=== PATIENT | male | born 1950 | race Caucasian/White ===

== ENCOUNTER 2017-09-27 05:47 | Inpatient (IN) | payer MEDICARE, OTHER ==
[2017-09-27] MEDS: HYDROmorphONE 1 MG/5 ML IV SYRINGE IV (06:42)
[2017-09-27] MEDS: ONDANSETRON 4 MG INJ IV ×4 (06:42→16:40)
[2017-09-27] MEDS: LACTATED RINGER'S 1,000 ML IV (06:42)
[2017-09-27] MEDS ORDERED: SUCCINYLCHOLINE CHLORIDE 100 MG/5 ML SYG IV (07:00)
[2017-09-27 07:14] LABS: ADD MAN DIFF? NO
[2017-09-27 07:24] LABS: WHITE BLOOD COUNT 18.1 10^3/ul (4.8-10.8)
[2017-09-27 07:24] LABS: BASOPHILS % 0.2 % (0.0-2.0); EOSINOPHILS # 0.1 10^3/ul (0.0-0.5); EOSINOPHILS % 0.6 % (0.0-7.0); HEMATOCRIT 54.2 % (42.0-52.0); HEMOGLOBIN 17.7 g/dl (14.0-18.0); LYMPHOCYTES # 1.6 10^3/ul (0.8-2.9); MEAN CORPUSCULAR HEMOGLOBIN 28.1 pg (29.0-33.0); MEAN CORPUSCULAR HGB CONC 32.7 g/dl (32.0-37.0); MEAN CORPUSCULAR VOLUME 85.9 fl (82.0-101.0); MEAN PLATELET VOLUME 11.1 fl (7.4-10.4); MONOCYTES % 5.5 % (0.0-11.0); NEUTROPHIL # 15.2 10^3/ul (1.6-7.5); NEUTROPHILS % 83.8 % (39.0-77.0); PLATELET COUNT 178 10^3/UL (140-415); RED BLOOD COUNT 6.31 10^6/ul (4.70-6.10); RED CELL DISTRIBUTION WIDTH 16.4 % (11.5-14.5)
[2017-09-27 07:39] LABS: ALANINE AMINOTRANSFERASE 28 IU/L (13-69); ALBUMIN 4.7 g/dl (3.3-4.9); ALBUMIN/GLOBULIN RATIO 1.42; ALKALINE PHOSPHATASE 186 IU/L (42-121); ANION GAP 21 (8-16); ASPARTATE AMINO TRANSFERASE 33 IU/L (15-46); BILIRUBIN,INDIRECT 0.7 mg/dl (0-1.1); BILIRUBIN,TOTAL 0.7 mg/dl (0.2-1.3); BLOOD UREA NITROGEN 18 mg/dl (7-20); CALCIUM 9.6 mg/dl (8.4-10.2); CARBON DIOXIDE 30 mmol/L (21-31); CHLORIDE 100 mmol/L (97-110); CREATININE 0.77 mg/dl (0.61-1.24); GLUCOSE 204 mg/dl (70-220); LIPASE 83 U/L (23-300); POTASSIUM 3.1 mmol/L (3.5-5.1); SODIUM 148 mmol/L (135-144)
[2017-09-27 07:52] LABS: ADD UMIC YES; UR ASCORBIC ACID 40 mg/dL (NEGATIVE); UR BILIRUBIN (Dip) NEGATIVE (NEGATIVE); UR BLOOD (Dip) NEGATIVE (NEGATIVE); UR CLARITY CLEAR (CLEAR); UR COLOR YELLOW (YELLOW); UR GLUCOSE (Dip) 3+ mg/dL (NEGATIVE); UR KETONES (Dip) 1+ mg/dL (NEGATIVE); UR LEUKOCYTE ESTERASE (Dip) NEGATIVE Leu/ul (NEGATIVE); UR NITRITE (Dip) NEGATIVE (NEGATIVE); UR RBC 2 /HPF (0-5); UR SPECIFIC GRAVITY (Dip) 1.007 (1.003-1.030); UR TOTAL PROTEIN (Dip) 2+ mg/dl (NEGATIVE); UR UROBILINOGEN (Dip) NEGATIVE (NEGATIVE); UR WBC 1 /HPF (0-5)
[2017-09-27] MEDS: KETOROLAC 15 MG INJ IV (07:56)
[2017-09-27] MEDS: morphine 4 MG/ML VIAL IV (08:35)
[2017-09-27] MEDS: POTASSIUM CHLORIDE (SR) 20 MEQ TAB PO (08:36)
[2017-09-27] MEDS: HYDROmorphONE 0.5 MG/0.5 ML SYG IV ×3 (09:09→17:30)
[2017-09-27] MEDS ORDERED: ACETAMINOPHEN 650 MG SUPP PR (09:30)
[2017-09-27] MEDS ORDERED: hydrALAzine 20 MG INJ IV ×2 (09:30→16:00)
[2017-09-27] MEDS ORDERED: NACL 0.9% 3 ML SYG IV (09:30)
[2017-09-27] MEDS: SOD CHLORIDE 0.9% 1,000 ML IV ×2 (09:42→17:14)
[2017-09-27 10:07] LABS: INR 1.37; PARTIAL THROMBOPLASTIN TIME 34.6 Sec (25.0-35.0); PROTIME 17.1 Sec (11.9-14.9); PT RATIO 1.3
[2017-09-27 10:29] LABS: CHOLESTEROL 123 mg/dl (100-200)
[2017-09-27 10:29] LABS: CHOL/HDL RATIO 2.2 RATIO; HDL CHOLESTEROL 54 mg/dl (30-78); LDL CHOLESTEROL,CALCULATED 53 mg/dl; TRIGLYCERIDES 79 mg/dl (0-149)
[2017-09-27 10:32] LABS: HEMOGLOBIN A1C 5.5 % (0-5.9)
[2017-09-27 11:29] LABS: LACTIC ACID 1.3 mmol/L (0.5-2.0)
[2017-09-27 12:53] LABS: FREE T4 (FREE THYROXINE) 2.13 ng/dl (0.78-2.44)
[2017-09-27] MEDS: GABAPENTIN 300 MG CAP PO ×2 (13:28→21:00)
[2017-09-27] MEDS: PIPER-TAZO 3.375 GM IV (PMX) 100 ML IVPB ×2 (13:28→23:26)
[2017-09-27] MEDS ORDERED: LIDOCAINE 2% (SDV) 5 ML INJ (13:52)
[2017-09-27] MEDS ORDERED: GLYCOPYRROLATE 0.4 MG INJ (13:52)
[2017-09-27] MEDS ORDERED: FENTAnyl 50 MCG/ML VIAL (13:52)
[2017-09-27] MEDS ORDERED: NEOSTIGMINE 3 MG/3 ML SYRINGE (13:52)
[2017-09-27] MEDS ORDERED: PROPOFOL 20 ML (13:52)
[2017-09-27] MEDS ORDERED: MIDAZOLAM 1 MG/ML 2 ML INJ (13:52)
[2017-09-27] MEDS ORDERED: ROCURONIUM 50 MG INJ (13:52)
[2017-09-27] MEDS ORDERED: BUPIVACAINE 0.25% (MPF) 30 ML INJ (13:52)
[2017-09-27] MEDS ORDERED: DEXAMETHASONE 4 MG/ML 1 ML INJ (13:53)
[2017-09-27] MEDS ORDERED: ONDANSETRON 4 MG INJ (13:54)
[2017-09-27] MEDS: POLYMYXIN/BACITRACIN 1L IRRIG IRR (14:43)
[2017-09-27] MEDS ORDERED: hydrALAzine 20 MG INJ (14:45)
[2017-09-27] MEDS ORDERED: SUGAMMADEX SODIUM 200 MG/2 ML VIAL IV (15:20)
[2017-09-27] MEDS ORDERED: OXYCODONE/ACETAMINOPHEN (5/325) TAB PO ×4 (15:30→16:00)
[2017-09-27] MEDS ORDERED: morphine 2 MG INJ IV (15:30)
[2017-09-27] MEDS ORDERED: HYDROmorphONE (0.2 MG/ML) 10ML SYG IV (16:00)
[2017-09-27] MEDS ORDERED: EPHEDrine SULFATE 50 MG/5 ML SYG IV (16:00)
[2017-09-27] MEDS ORDERED: DIPHENHYDRAMINE 50 MG INJ IV (16:00)
[2017-09-27] MEDS ORDERED: morphine (1 MG/ML) 10ML SYRINGE IV ×2 (16:00)
[2017-09-27] MEDS ORDERED: LABETALOL HCL 20MG INJ IV (16:00)
[2017-09-27] MEDS ORDERED: MIDAZOLAM 1 MG/ML 2 ML INJ IV (16:00)
[2017-09-27] MEDS ORDERED: MEPERIDINE 25 MG INJ IV (16:00)
[2017-09-27] MEDS ORDERED: ATROPINE 1 MG/10 ML SYRINGE IV (16:00)
[2017-09-27] MEDS: FENTAnyl 50 MCG/ML VIAL IV ×3 (16:10→16:25)
[2017-09-27] MEDS: HYDROmorphONE (0.2 MG/ML) 10ML SYG IV ×3 (16:11→16:25)
[2017-09-27] MEDS: morphine (1 MG/ML) 10ML SYRINGE IV (16:28)
[2017-09-27 19:00] LABS: HEMATOCRIT 56.5 % (42.0-52.0); HEMOGLOBIN 18.4 g/dl (14.0-18.0)
[2017-09-27] MEDS: ATORVASTATIN 20 MG TAB PO (21:00)
[2017-09-27 21:15] LABS: HEMATOCRIT 57.3 % (42.0-52.0); HEMOGLOBIN 18.6 g/dl (14.0-18.0)
[2017-09-28] MEDS: HYDROmorphONE 0.5 MG/0.5 ML SYG IV ×4 (01:13→20:02)
[2017-09-28] MEDS: ONDANSETRON 4 MG INJ IV ×3 (01:14→15:03)
[2017-09-28] MEDS: PIPER-TAZO 3.375 GM IV (PMX) 100 ML IVPB ×3 (05:49→21:35)
[2017-09-28] MEDS: SOD CHLORIDE 0.9% 1,000 ML IV ×6 (05:49→23:35)
[2017-09-28 06:01] LABS: WHITE BLOOD COUNT 32.1 10^3/ul (4.8-10.8)
[2017-09-28 06:01] LABS: ABNORMAL IP MESSAGE 1; HEMATOCRIT 53.9 % (42.0-52.0); HEMOGLOBIN 17.5 g/dl (14.0-18.0); MEAN CORPUSCULAR HEMOGLOBIN 28.4 pg (29.0-33.0); MEAN CORPUSCULAR HGB CONC 32.5 g/dl (32.0-37.0); MEAN CORPUSCULAR VOLUME 87.5 fl (82.0-101.0); MEAN PLATELET VOLUME 11.4 fl (7.4-10.4); PLATELET COUNT 244 10^3/UL (140-415); POSITIVE DIFF @See below; RED BLOOD COUNT 6.16 10^6/ul (4.70-6.10); RED CELL DISTRIBUTION WIDTH 16.9 % (11.5-14.5)
[2017-09-28 06:08] LABS: ADD MAN DIFF? YES
[2017-09-28 06:32] LABS: PHOSPHORUS 6.2 mg/dl (2.5-4.9)
[2017-09-28 06:32] LABS: MAGNESIUM 1.8 mg/dl (1.7-2.5)
[2017-09-28 06:41] LABS: LACTIC ACID 6.4 mmol/L (0.5-2.0)
[2017-09-28 06:54] LABS: ALANINE AMINOTRANSFERASE 23 IU/L (13-69); ALBUMIN 3.3 g/dl (3.3-4.9); ALBUMIN/GLOBULIN RATIO 1.32; ALKALINE PHOSPHATASE 107 IU/L (42-121); ANION GAP 22 (8-16); ASPARTATE AMINO TRANSFERASE 54 IU/L (15-46); BILIRUBIN,INDIRECT 1.1 mg/dl (0-1.1); BILIRUBIN,TOTAL 1.1 mg/dl (0.2-1.3); BLOOD UREA NITROGEN 29 mg/dl (7-20); CARBON DIOXIDE 24 mmol/L (21-31); CHLORIDE 105 mmol/L (97-110); CREATININE 1.34 mg/dl (0.61-1.24); GLUCOSE 186 mg/dl (70-220); POTASSIUM 4.7 mmol/L (3.5-5.1); SODIUM 146 mmol/L (135-144); TOTAL PROTEIN 5.8 g/dl (6.1-8.1)
[2017-09-28 07:12] LABS: ANISOCYTOSIS 1+ (0-0); BAND NEUTROPHILS #M 9.3 10^3/ul (0.0-0.6); BAND NEUTROPHILS % (M) 29 % (0-4); BURR CELLS 3+ (0-0); GIANT THROMBO% (M) 1 % (0-0); LYMPHOCYTES #M 1.2 10^3/ul (0.8-2.9); LYMPHOCYTES % (M) 4 % (15-51); METAMYELOCYTES #M 0.6 10^3/ul (0.0-0.0); METAMYELOCYTES %M 2 % (0-0); MICROCYTOSIS 1+ (0-0); MONOCYTE #M 1.6 10^3/ul (0.3-0.9); MONOCYTES % (M) 5 % (0-11); PLATELET ESTIMATE NORMAL; POIKILOCYTOSIS 3+ (0-0); REACTIVE LYMPHOCYTES #M 0.3 10^3/ul (0.0-0.0); REACTIVE LYMPHOCYTES% (M) 1 % (0-0); SEG NEUT #M 21.9 10^3/ul (1.6-7.5); SEGMENTED NEUTROPHILS (M) % 59 % (39-77); SMUDGE%M 6 % (0-0)
[2017-09-28] MEDS ORDERED: VANCOMYCIN IV PER PHARMACY XX (07:30)
[2017-09-28] MEDS: SOD CHLORIDE 0.9% 500 ML IV ×2 (08:23→18:29)
[2017-09-28] MEDS: ALBUTEROL 0.083% (NEB) 2.5 MG/3 ML AMP HHN (08:32)
[2017-09-28] MEDS: BUMETANIDE 1 MG TAB PO (09:00)
[2017-09-28] MEDS: GABAPENTIN 300 MG CAP PO ×3 (09:45→21:34)
[2017-09-28] MEDS: PREGABALIN 75 MG CAP PO (09:45)
[2017-09-28] MEDS: VANCOMYCIN 1 GM (PMX) 250 ML IVPB ×2 (09:47→11:40)
[2017-09-28 10:45] LABS: LACTIC ACID 4.9 mmol/L (0.5-2.0)
[2017-09-28 12:28] LABS: HEMATOCRIT 46.7 % (42.0-52.0); HEMOGLOBIN 15.2 g/dl (14.0-18.0)
[2017-09-28 12:58] LABS: INR 1.57; PROTIME 19.1 Sec (11.9-14.9); PT RATIO 1.5
[2017-09-28 12:59] LABS: PARTIAL THROMBOPLASTIN TIME 34.2 Sec (25.0-35.0)
[2017-09-28 13:06] LABS: ALANINE AMINOTRANSFERASE 23 IU/L (13-69); ALBUMIN 2.9 g/dl (3.3-4.9); ALKALINE PHOSPHATASE 84 IU/L (42-121); ANION GAP 18 (8-16); ASPARTATE AMINO TRANSFERASE 39 IU/L (15-46); BILIRUBIN,INDIRECT 0.6 mg/dl (0-1.1); BILIRUBIN,TOTAL 0.6 mg/dl (0.2-1.3); BLOOD UREA NITROGEN 36 mg/dl (7-20); CALCIUM 8.4 mg/dl (8.4-10.2); CARBON DIOXIDE 24 mmol/L (21-31); CHLORIDE 106 mmol/L (97-110); CREATININE 1.71 mg/dl (0.61-1.24); GLUCOSE 187 mg/dl (70-220); POTASSIUM 4.4 mmol/L (3.5-5.1); SODIUM 144 mmol/L (135-144); TOTAL PROTEIN 5.3 g/dl (6.1-8.1)
[2017-09-28 13:13] LABS: LACTIC ACID 5.6 mmol/L (0.5-2.0)
[2017-09-28 13:37] LABS: URIC ACID 6.7 mg/dl (3.1-7.9)
[2017-09-28 14:35] LABS: ABNORMAL IP MESSAGE 1; HEMATOCRIT 46.6 % (42.0-52.0); HEMOGLOBIN 15.1 g/dl (14.0-18.0); MEAN CORPUSCULAR HEMOGLOBIN 28.3 pg (29.0-33.0); MEAN CORPUSCULAR HGB CONC 32.4 g/dl (32.0-37.0); MEAN CORPUSCULAR VOLUME 87.4 fl (82.0-101.0); MEAN PLATELET VOLUME 11.8 fl (7.4-10.4); PLATELET COUNT 205 10^3/UL (140-415); POSITIVE DIFF @See below; RED BLOOD COUNT 5.33 10^6/ul (4.70-6.10); RED CELL DISTRIBUTION WIDTH 16.1 % (11.5-14.5)
[2017-09-28 14:38] LABS: ADD MAN DIFF? YES
[2017-09-28 15:20] LABS: ANISOCYTOSIS 1+ (0-0); BAND NEUTROPHILS % (M) 26 % (0-4); LYMPHOCYTES #M 0.5 10^3/ul (0.8-2.9); LYMPHOCYTES % (M) 2 % (15-51); MICROCYTOSIS 1+ (0-0); MONOCYTES % (M) 4 % (0-11); PLATELET ESTIMATE NORMAL; POIKILOCYTOSIS 1+ (0-0); SEG NEUT #M 20.3 10^3/ul (1.6-7.5); SEGMENTED NEUTROPHILS (M) % 68 % (39-77); SMUDGE%M 1 % (0-0)
[2017-09-28 16:25] LABS: ADD UMIC YES; UR ASCORBIC ACID NEGATIVE (NEGATIVE); UR BILIRUBIN (Dip) NEGATIVE (NEGATIVE); UR BLOOD (Dip) 2+ mg/dL (NEGATIVE); UR CLARITY CLOUDY (CLEAR); UR COLOR AMBER (YELLOW); UR GLUCOSE (Dip) 1+ mg/dL (NEGATIVE); UR KETONES (Dip) TRACE mg/dL (NEGATIVE); UR LEUKOCYTE ESTERASE (Dip) TRACE Leu/ul (NEGATIVE); UR NITRITE (Dip) NEGATIVE (NEGATIVE); UR RBC 54 /HPF (0-5); UR SPECIFIC GRAVITY (Dip) 1.023 (1.003-1.030); UR TOTAL PROTEIN (Dip) 1+ mg/dl (NEGATIVE); UR UROBILINOGEN (Dip) NEGATIVE (NEGATIVE); UR WBC 3 /HPF (0-5)
[2017-09-28 16:28] LABS: SODIUM,URINE RANDOM 27 mmol/L (30-90)
[2017-09-28 16:28] LABS: HEMATOCRIT 43.6 % (42.0-52.0); HEMOGLOBIN 14.1 g/dl (14.0-18.0)
[2017-09-28 16:30] LABS: CREATININE,URINE RANDOM 118.43 mg/dl (20-370); PROTEIN/CREAT RATIO 0.31 RATIO
[2017-09-28] MEDS: ALBUMIN HUMAN 25% 100 ML IV (17:28)
[2017-09-28] MEDS: PANTOPRAZOLE 40 MG INJ IV (18:29)
[2017-09-28 18:33] LABS: ABNORMAL IP MESSAGE 1; HEMATOCRIT 44.3 % (42.0-52.0); HEMOGLOBIN 14.3 g/dl (14.0-18.0); MEAN CORPUSCULAR HEMOGLOBIN 28.4 pg (29.0-33.0); MEAN CORPUSCULAR HGB CONC 32.3 g/dl (32.0-37.0); MEAN CORPUSCULAR VOLUME 88.1 fl (82.0-101.0); PLATELET COUNT 166 10^3/UL (140-415); POSITIVE DIFF @See below; RED BLOOD COUNT 5.03 10^6/ul (4.70-6.10); RED CELL DISTRIBUTION WIDTH 16.2 % (11.5-14.5)
[2017-09-28 18:33] LABS: WHITE BLOOD COUNT 25.2 10^3/ul (4.8-10.8)
[2017-09-28 18:34] LABS: ADD MAN DIFF? YES
[2017-09-28 18:51] LABS: LACTIC ACID 4.8 mmol/L (0.5-2.0)
[2017-09-28] MEDS: FUROSEMIDE 40 MG INJ IV (19:58)
[2017-09-28 20:04] LABS: ANISOCYTOSIS 1+ (0-0); BAND NEUTROPHILS #M 3.7 10^3/ul (0.0-0.6); BAND NEUTROPHILS % (M) 15 % (0-4); GIANT THROMBO% (M) 1 % (0-0); LYMPHOCYTES #M 2.7 10^3/ul (0.8-2.9); LYMPHOCYTES % (M) 11 % (15-51); MICROCYTOSIS 1+ (0-0); MONOCYTES % (M) 4 % (0-11); OVALOCYTES 1+ (0-0); PLATELET ESTIMATE NORMAL; POIKILOCYTOSIS 1+ (0-0); POLYCHROMASIA 1+ (0-0); SEG NEUT #M 18.6 10^3/ul (1.6-7.5); SEGMENTED NEUTROPHILS (M) % 70 % (39-77)
[2017-09-28] MEDS: ATORVASTATIN 20 MG TAB PO (21:00)
[2017-09-28 22:45] LABS: HEMATOCRIT 36.4 % (42.0-52.0); HEMOGLOBIN 11.8 g/dl (14.0-18.0)
[2017-09-28] MEDS: ZOLPIDEM 5 MG TAB PO (23:35)
[2017-09-29] MEDS: HYDROmorphONE 0.5 MG/0.5 ML SYG IV ×2 (00:31→12:15)
[2017-09-29 00:50] LABS: ABNORMAL IP MESSAGE 1; HEMATOCRIT 29.6 % (42.0-52.0); HEMOGLOBIN 9.6 g/dl (14.0-18.0); MEAN CORPUSCULAR HEMOGLOBIN 28.4 pg (29.0-33.0); MEAN CORPUSCULAR HGB CONC 32.4 g/dl (32.0-37.0); MEAN CORPUSCULAR VOLUME 87.6 fl (82.0-101.0); MEAN PLATELET VOLUME 11.2 fl (7.4-10.4); PLATELET COUNT 122 10^3/UL (140-415); POSITIVE DIFF @See below; RED BLOOD COUNT 3.38 10^6/ul (4.70-6.10); RED CELL DISTRIBUTION WIDTH 15.9 % (11.5-14.5)
[2017-09-29 00:50] LABS: WHITE BLOOD COUNT 14.6 10^3/ul (4.8-10.8)
[2017-09-29 00:55] LABS: ADD MAN DIFF? YES
[2017-09-29 01:30] LABS: LACTIC ACID 2.6 mmol/L (0.5-2.0)
[2017-09-29 01:32] LABS: ANISOCYTOSIS 1+ (0-0); BAND NEUTROPHILS #M 2.4 10^3/ul (0.0-0.6); BAND NEUTROPHILS % (M) 17 % (0-4); LYMPHOCYTES #M 2.7 10^3/ul (0.8-2.9); LYMPHOCYTES % (M) 19 % (15-51); MICROCYTOSIS 1+ (0-0); MONOCYTE #M 0.7 10^3/ul (0.3-0.9); MONOCYTES % (M) 5 % (0-11); PLATELET ESTIMATE NORMAL; POIKILOCYTOSIS 2+ (0-0); SEGMENTED NEUTROPHILS (M) % 59 % (39-77); SMUDGE%M 5 % (0-0)
[2017-09-29] MEDS: PANTOPRAZOLE 40 MG INJ IV ×2 (05:04→18:28)
[2017-09-29] MEDS: SOD CHLORIDE 0.9% 1,000 ML IV ×3 (05:06→18:29)
[2017-09-29] MEDS: PIPER-TAZO 3.375 GM IV (PMX) 100 ML IVPB ×3 (05:14→22:35)
[2017-09-29 05:32] LABS: ADD MAN DIFF? NO
[2017-09-29 05:44] LABS: WHITE BLOOD COUNT 14.1 10^3/ul (4.8-10.8)
[2017-09-29 05:44] LABS: ABNORMAL IP MESSAGE 1; BASOPHILS % 0.1 % (0.0-2.0); HEMATOCRIT 30.8 % (42.0-52.0); HEMOGLOBIN 10.3 g/dl (14.0-18.0); LYMPHOCYTES # 1.6 10^3/ul (0.8-2.9); LYMPHOCYTES % 11.1 % (15.0-51.0); MEAN CORPUSCULAR HEMOGLOBIN 28.8 pg (29.0-33.0); MEAN CORPUSCULAR HGB CONC 33.4 g/dl (32.0-37.0); MEAN PLATELET VOLUME 11.5 fl (7.4-10.4); MONOCYTE # 1.9 10^3/ul (0.3-0.9); MONOCYTES % 13.2 % (0.0-11.0); NEUTROPHIL # 10.6 10^3/ul (1.6-7.5); NEUTROPHILS % 75.2 % (39.0-77.0); PLATELET COUNT 136 10^3/UL (140-415); POSITIVE DIFF @See below; RED BLOOD COUNT 3.58 10^6/ul (4.70-6.10)
[2017-09-29 06:06] LABS: ALANINE AMINOTRANSFERASE 24 IU/L (13-69); ALBUMIN 2.7 g/dl (3.3-4.9); ALBUMIN/GLOBULIN RATIO 1.42; ALKALINE PHOSPHATASE 74 IU/L (42-121); ANION GAP 14 (8-16); ASPARTATE AMINO TRANSFERASE 26 IU/L (15-46); BILIRUBIN,INDIRECT 0.6 mg/dl (0-1.1); BILIRUBIN,TOTAL 0.6 mg/dl (0.2-1.3); BLOOD UREA NITROGEN 44 mg/dl (7-20); CALCIUM 8.1 mg/dl (8.4-10.2); CARBON DIOXIDE 26 mmol/L (21-31); CHLORIDE 106 mmol/L (97-110); CREATININE 1.86 mg/dl (0.61-1.24); GLUCOSE 112 mg/dl (70-220); POTASSIUM 4.4 mmol/L (3.5-5.1); SODIUM 142 mmol/L (135-144); TOTAL PROTEIN 4.6 g/dl (6.1-8.1)
[2017-09-29 07:25] LABS: CREATINE KINASE 45 IU/L (23-200)
[2017-09-29 07:26] LABS: LACTIC ACID 1.8 mmol/L (0.5-2.0)
[2017-09-29 07:53] LABS: MAGNESIUM 1.7 mg/dl (1.7-2.5)
[2017-09-29 07:53] LABS: PHOSPHORUS 5.2 mg/dl (2.5-4.9)
[2017-09-29 08:39] LABS: BAND NEUTROPHILS % (M) 29 % (0-4); LYMPHOCYTES #M 2.9 10^3/ul (0.8-2.9); LYMPHOCYTES % (M) 21 % (15-51); MONOCYTE #M 1.9 10^3/ul (0.3-0.9); MONOCYTES % (M) 14 % (0-11); PLATELET ESTIMATE DECREASED; REACTIVE LYMPHOCYTES #M 0.2 10^3/ul (0.0-0.0); REACTIVE LYMPHOCYTES% (M) 2 % (0-0); SEG NEUT #M 5.4 10^3/ul (1.6-7.5); SEGMENTED NEUTROPHILS (M) % 34 % (39-77); SMUDGE%M 4 % (0-0)
[2017-09-29] MEDS: VANCOMYCIN 1.5 GM in SOD CHLORIDE 0.9% 250 ML IVPB (10:24)
[2017-09-29 12:14] LABS: ADD MAN DIFF? NO
[2017-09-29 12:25] LABS: ABNORMAL IP MESSAGE 1; BASOPHILS % 0.2 % (0.0-2.0); EOSINOPHILS % 0.1 % (0.0-7.0); HEMATOCRIT 28.6 % (42.0-52.0); HEMOGLOBIN 9.3 g/dl (14.0-18.0); LYMPHOCYTES # 1.1 10^3/ul (0.8-2.9); LYMPHOCYTES % 8.5 % (15.0-51.0); MEAN CORPUSCULAR HEMOGLOBIN 28.2 pg (29.0-33.0); MEAN CORPUSCULAR HGB CONC 32.5 g/dl (32.0-37.0); MEAN CORPUSCULAR VOLUME 86.7 fl (82.0-101.0); MEAN PLATELET VOLUME 11.4 fl (7.4-10.4); MONOCYTE # 1.8 10^3/ul (0.3-0.9); MONOCYTES % 14.1 % (0.0-11.0); NEUTROPHIL # 9.8 10^3/ul (1.6-7.5); NEUTROPHILS % 76.9 % (39.0-77.0); PLATELET COUNT 114 10^3/UL (140-415); POSITIVE DIFF @See below
[2017-09-29 12:25] LABS: WHITE BLOOD COUNT 12.7 10^3/ul (4.8-10.8)
[2017-09-29 12:41] LABS: LACTIC ACID 1.5 mmol/L (0.5-2.0)
[2017-09-29 12:43] LABS: ANION GAP 15 (8-16); BLOOD UREA NITROGEN 45 mg/dl (7-20); CALCIUM 8.1 mg/dl (8.4-10.2); CARBON DIOXIDE 23 mmol/L (21-31); CHLORIDE 109 mmol/L (97-110); GLUCOSE 108 mg/dl (70-220); MAGNESIUM 1.7 mg/dl (1.7-2.5); PHOSPHORUS 4.4 mg/dl (2.5-4.9); POTASSIUM 4.5 mmol/L (3.5-5.1); SODIUM 142 mmol/L (135-144)
[2017-09-29] MEDS: ALBUMIN HUMAN 25% 100 ML IV (14:06)
[2017-09-29] MEDS: FUROSEMIDE 20 MG INJ IV (15:25)
[2017-09-29] MEDS: PREGABALIN 75 MG CAP PO (21:00)
[2017-09-29] MEDS: ATORVASTATIN 20 MG TAB PO (21:00)
[2017-09-29] MEDS: GABAPENTIN 300 MG CAP PO (21:00)
[2017-09-29] MEDS: ALBUTEROL 0.083% (NEB) 2.5 MG/3 ML AMP HHN (22:12)
[2017-09-30] MEDS: ZOLPIDEM 5 MG TAB PO (01:20)
[2017-09-30] MEDS: HYDROmorphONE 0.5 MG/0.5 ML SYG IV (03:32)
[2017-09-30] MEDS: ONDANSETRON 4 MG INJ IV ×2 (03:43→22:38)
[2017-09-30 05:45] LABS: ABNORMAL IP MESSAGE 1; HEMATOCRIT 21.2 % (42.0-52.0); HEMOGLOBIN 7.1 g/dl (14.0-18.0); MEAN CORPUSCULAR HEMOGLOBIN 28.7 pg (29.0-33.0); MEAN CORPUSCULAR HGB CONC 33.5 g/dl (32.0-37.0); MEAN CORPUSCULAR VOLUME 85.8 fl (82.0-101.0); MEAN PLATELET VOLUME 10.6 fl (7.4-10.4); PLATELET COUNT 94 10^3/UL (140-415); POSITIVE DIFF @See below; RED BLOOD COUNT 2.47 10^6/ul (4.70-6.10); RED CELL DISTRIBUTION WIDTH 15.8 % (11.5-14.5)
[2017-09-30 05:45] LABS: WHITE BLOOD COUNT 8.1 10^3/ul (4.8-10.8)
[2017-09-30] MEDS: PANTOPRAZOLE 40 MG INJ IV ×2 (05:49→20:33)
[2017-09-30] MEDS: PIPER-TAZO 3.375 GM IV (PMX) 100 ML IVPB ×3 (05:49→22:40)
[2017-09-30 06:06] LABS: ALANINE AMINOTRANSFERASE 24 IU/L (13-69); ALBUMIN 2.7 g/dl (3.3-4.9); ALBUMIN/GLOBULIN RATIO 1.22; ALKALINE PHOSPHATASE 62 IU/L (42-121); ANION GAP 15 (8-16); ASPARTATE AMINO TRANSFERASE 22 IU/L (15-46); BILIRUBIN,INDIRECT 0.5 mg/dl (0-1.1); BILIRUBIN,TOTAL 0.5 mg/dl (0.2-1.3); BLOOD UREA NITROGEN 36 mg/dl (7-20); CALCIUM 7.8 mg/dl (8.4-10.2); CARBON DIOXIDE 24 mmol/L (21-31); CHLORIDE 106 mmol/L (97-110); CREATININE 1.25 mg/dl (0.61-1.24); GLUCOSE 85 mg/dl (70-220); POTASSIUM 3.3 mmol/L (3.5-5.1); SODIUM 142 mmol/L (135-144); TOTAL PROTEIN 4.9 g/dl (6.1-8.1)
[2017-09-30 06:07] LABS: MAGNESIUM 1.8 mg/dl (1.7-2.5)
[2017-09-30 06:07] LABS: PHOSPHORUS 3.2 mg/dl (2.5-4.9)
[2017-09-30 06:13] LABS: ADD MAN DIFF? YES
[2017-09-30] MEDS ORDERED: ALBUMIN HUMAN 5% 250 ML INJ (07:00)
[2017-09-30] MEDS ORDERED: CEFAZOLIN 1 GM INJ (07:00)
[2017-09-30] MEDS ORDERED: SUCCINYLCHOLINE CHLORIDE 100 MG/5 ML SYG IV ×2 (07:00→09:55)
[2017-09-30] MEDS ORDERED: EPHEDrine SULFATE 50 MG/5 ML SYG (07:00)
[2017-09-30] MEDS ORDERED: ROCURONIUM 50 MG INJ (07:00)
[2017-09-30] MEDS: POTASSIUM CHLORIDE 100 ML IVPB (07:21)
[2017-09-30] MEDS: NORepinephrine 8MG/250 ML (PMX 250 ML IV (07:28)
[2017-09-30] MEDS: FUROSEMIDE 20 MG INJ IV (08:03)
[2017-09-30] MEDS ORDERED: MIDAZOLAM 1 MG/ML 2 ML INJ (08:27)
[2017-09-30] MEDS ORDERED: FENTAnyl 50 MCG/ML VIAL (08:39)
[2017-09-30] MEDS ORDERED: LIDOCAINE 2% (SDV) 5 ML INJ (09:11)
[2017-09-30] MEDS ORDERED: ETOMIDATE 20 MG INJ ×2 (09:11→09:55)
[2017-09-30] MEDS ORDERED: ONDANSETRON 4 MG INJ (09:19)
[2017-09-30] MEDS ORDERED: DEXAMETHASONE 4 MG/ML 1 ML INJ (09:19)
[2017-09-30] MEDS ORDERED: SUGAMMADEX SODIUM 200 MG/2 ML VIAL IV (09:20)
[2017-09-30] MEDS ORDERED: ALBUMIN HUMAN 5% 250 ML (09:31)
[2017-09-30] MEDS ORDERED: HYDROmorphONE 2 MG/ML SYG (09:44)
[2017-09-30] MEDS ORDERED: morphine 2 MG INJ IV (10:00)
[2017-09-30 10:18] LABS: ANISOCYTOSIS 2+ (0-0); BAND NEUTROPHILS #M 1.1 10^3/ul (0.0-0.6); BAND NEUTROPHILS % (M) 14 % (0-4); BURR CELLS 1+ (0-0); GIANT THROMBO% (M) 1 % (0-0); LYMPHOCYTES #M 0.3 10^3/ul (0.8-2.9); LYMPHOCYTES % (M) 4 % (15-51); MICROCYTOSIS 1+ (0-0); MONOCYTE #M 0.4 10^3/ul (0.3-0.9); MONOCYTES % (M) 5 % (0-11); OVALOCYTES 1+ (0-0); PLATELET ESTIMATE DECREASED; POIKILOCYTOSIS 2+ (0-0); POLYCHROMASIA 1+ (0-0); SEG NEUT #M 6.3 10^3/ul (1.6-7.5); SEGMENTED NEUTROPHILS (M) % 77 % (39-77); SMUDGE%M 5 % (0-0)
[2017-09-30] MEDS ORDERED: PROPOFOL 100 ML (10:30)
[2017-09-30 10:34] LABS: ADD MAN DIFF? NO
[2017-09-30 10:45] LABS: WHITE BLOOD COUNT 7.8 10^3/ul (4.8-10.8)
[2017-09-30 10:45] LABS: ABNORMAL IP MESSAGE 1; BASOPHILS % 0.3 % (0.0-2.0); EOSINOPHILS % 0.1 % (0.0-7.0); HEMATOCRIT 25.1 % (42.0-52.0); HEMOGLOBIN 8.2 g/dl (14.0-18.0); LYMPHOCYTES # 0.5 10^3/ul (0.8-2.9); LYMPHOCYTES % 6.6 % (15.0-51.0); MEAN CORPUSCULAR HEMOGLOBIN 28.5 pg (29.0-33.0); MEAN CORPUSCULAR HGB CONC 32.7 g/dl (32.0-37.0); MEAN CORPUSCULAR VOLUME 87.2 fl (82.0-101.0); MEAN PLATELET VOLUME 10.8 fl (7.4-10.4); MONOCYTE # 0.6 10^3/ul (0.3-0.9); MONOCYTES % 7.7 % (0.0-11.0); NEUTROPHIL # 6.6 10^3/ul (1.6-7.5); NEUTROPHILS % 84.5 % (39.0-77.0); PLATELET COUNT 99 10^3/UL (140-415); POSITIVE DIFF @See below; RED BLOOD COUNT 2.88 10^6/ul (4.70-6.10); RED CELL DISTRIBUTION WIDTH 15.9 % (11.5-14.5)
[2017-09-30] MEDS: POTASSIUM CHLORIDE 30 MEQ in SOD CHLORIDE 0.9% 1,000 ML IV (10:59)
[2017-09-30] MEDS ORDERED: HYDROmorphONE 0.5 MG/0.5 ML SYG IV (11:00)
[2017-09-30] MEDS ORDERED: ONDANSETRON 4 MG INJ IV (11:00)
[2017-09-30] MEDS ORDERED: PROPOFOL 100 ML IV (11:00)
[2017-09-30] MEDS: PROPOFOL 100 ML IV ×3 (11:00→19:20)
[2017-09-30 11:22] LABS: AADO2 Arterial 288.6 mmHg (7.0-24.0); Arterial Base Excess -6.4 mmol/L (-3.0-3); Arterial Blood Gas Oxygen Sat 95.2 mmHG (95.0-98.0); Arterial COHb 0.5 % (0.0-3.0); Arterial Fraction of Oxyhgb 94.7 % (93.0-99.0); Arterial HCO3 20.4 mmol/L (22.0-26.0); Arterial MetHb 0 % (0.0-1.5); Arterial Total Hemglobin 8.3 g/dl (12.0-18.0); Arterial pCO2 46.4 mmhg (35-45); MODE VENT - AC; Site A-Line
[2017-09-30 11:40] LABS: ANISOCYTOSIS 1+ (0-0); BAND NEUTROPHILS #M 1.1 10^3/ul (0.0-0.6); BAND NEUTROPHILS % (M) 15 % (0-4); LYMPHOCYTES #M 0.6 10^3/ul (0.8-2.9); LYMPHOCYTES % (M) 8 % (15-51); MONOCYTE #M 0.3 10^3/ul (0.3-0.9); MONOCYTES % (M) 5 % (0-11); OVALOCYTES 1+ (0-0); PLATELET ESTIMATE DECREASED; POIKILOCYTOSIS 1+ (0-0); POLYCHROMASIA 1+ (0-0); SEG NEUT #M 5.7 10^3/ul (1.6-7.5); SEGMENTED NEUTROPHILS (M) % 72 % (39-77); SMUDGE%M 1 % (0-0); TOXIC GRANULATION 1+ (0-0)
[2017-09-30] MEDS: NA BICARBONATE 8.4% 50 ML SYG IV (11:55)
[2017-09-30 12:28] LABS: WHITE BLOOD COUNT 6.5 10^3/ul (4.8-10.8)
[2017-09-30 12:28] LABS: ABNORMAL IP MESSAGE 1; HEMATOCRIT 20.2 % (42.0-52.0); MEAN CORPUSCULAR HEMOGLOBIN 28.3 pg (29.0-33.0); MEAN CORPUSCULAR HGB CONC 33.2 g/dl (32.0-37.0); MEAN CORPUSCULAR VOLUME 85.2 fl (82.0-101.0); MEAN PLATELET VOLUME 9.9 fl (7.4-10.4); PLATELET COUNT 81 10^3/UL (140-415); POSITIVE DIFF @See below; RED BLOOD COUNT 2.37 10^6/ul (4.70-6.10); RED CELL DISTRIBUTION WIDTH 15.9 % (11.5-14.5)
[2017-09-30 12:32] LABS: HEMOGLOBIN 6.7 g/dl (14.0-18.0)
[2017-09-30 12:33] LABS: ADD MAN DIFF? YES
[2017-09-30] MEDS: SOD CHLORIDE 0.9% 250 ML IV* ×2 (12:39→16:06)
[2017-09-30] MEDS: SODIUM BICARBONATE (IV ADD) 100 MEQ in DEXTROSE 5% 1,000 ML IV (12:46)
[2017-09-30] MEDS: VANCOMYCIN 1.5 GM in SOD CHLORIDE 0.9% 250 ML IVPB (13:04)
[2017-09-30 13:32] LABS: IMMEDIATE SPIN CROSSMATCH 1
[2017-09-30 13:35] LABS: ANISOCYTOSIS 1+ (0-0); BAND NEUTROPHILS % (M) 16 % (0-4); EOSINOPHILS % (M) 1 % (0-7); LYMPHOCYTES #M 0.2 10^3/ul (0.8-2.9); LYMPHOCYTES % (M) 4 % (15-51); METAMYELOCYTES %M 1 % (0-0); MONOCYTE #M 0.3 10^3/ul (0.3-0.9); MONOCYTES % (M) 5 % (0-11); MYELOCYTES % (M) 1 % (0-0); OVALOCYTES 1+ (0-0); PLATELET ESTIMATE DECREASED; POIKILOCYTOSIS 1+ (0-0); POLYCHROMASIA 1+ (0-0); SEG NEUT #M 4.7 10^3/ul (1.6-7.5); SEGMENTED NEUTROPHILS (M) % 72 % (39-77); SMUDGE%M 2 % (0-0)
[2017-09-30 15:19] LABS: HEMATOCRIT 23.8 % (42.0-52.0); HEMOGLOBIN 7.9 g/dl (14.0-18.0)
[2017-09-30 15:40] LABS: PLATELET COUNT 105 10^3/UL (140-415)
[2017-09-30 15:41] LABS: ANION GAP 15 (8-16); BLOOD UREA NITROGEN 38 mg/dl (7-20); CALCIUM 7.8 mg/dl (8.4-10.2); CARBON DIOXIDE 27 mmol/L (21-31); CHLORIDE 106 mmol/L (97-110); CREATININE 1.22 mg/dl (0.61-1.24); GLUCOSE 108 mg/dl (70-220); POTASSIUM 3.7 mmol/L (3.5-5.1); SODIUM 144 mmol/L (135-144)
[2017-09-30 15:47] LABS: INR 1.37; INR 1.39; PARTIAL THROMBOPLASTIN TIME 39.1 Sec (25.0-35.0); PROTIME 17.1 Sec (11.9-14.9); PROTIME 17.3 Sec (11.9-14.9); PT RATIO 1.3; PT RATIO 1.4
[2017-09-30 15:49] LABS: PARTIAL THROMBOPLASTIN TIME 38.9 Sec (25.0-35.0)
[2017-09-30 15:50] LABS: THROMBIN TIME 13.3 SEC (13.8-19.1)
[2017-09-30 15:52] LABS: PHOSPHORUS 3.4 mg/dl (2.5-4.9)
[2017-09-30 16:22] LABS: FIBRIN SPLIT PRODUCT <10 ug/ml (<10)
[2017-09-30 16:32] LABS: ABNORMAL IP MESSAGE 1; HEMATOCRIT 28.9 % (42.0-52.0); POSITIVE DIFF @See below
[2017-09-30 16:55] LABS: WHITE BLOOD COUNT 10.9 10^3/ul (4.8-10.8)
[2017-09-30 16:55] LABS: HEMOGLOBIN 9.6 g/dl (14.0-18.0); MEAN CORPUSCULAR HEMOGLOBIN 29.3 pg (29.0-33.0); MEAN CORPUSCULAR HGB CONC 33.2 g/dl (32.0-37.0); MEAN CORPUSCULAR VOLUME 88.1 fl (82.0-101.0); RED BLOOD COUNT 3.28 10^6/ul (4.70-6.10)
[2017-09-30 16:56] LABS: MEAN PLATELET VOLUME 10.7 fl (7.4-10.4); PLATELET COUNT 102 10^3/UL (140-415); RED CELL DISTRIBUTION WIDTH 15.1 % (11.5-14.5)
[2017-09-30 17:00] LABS: ADD MAN DIFF? YES
[2017-09-30 17:27] LABS: IMMEDIATE SPIN CROSSMATCH 1 7
[2017-09-30] MEDS: POTASSIUM CHLORIDE 50 ML IVPB (17:38)
[2017-09-30] MEDS: MAGNESIUM SULFATE 1 GM/D5W 100 ML IVPB (18:48)
[2017-09-30 19:49] LABS: ACANTHOCYTES 1+ (0-0); ANISOCYTOSIS 2+ (0-0); BAND NEUTROPHILS #M 1.6 10^3/ul (0.0-0.6); BAND NEUTROPHILS % (M) 15 % (0-4); BURR CELLS 1+ (0-0); ECHINOCYTOSIS 1+ (0-0); GIANT THROMBO% (M) 1 % (0-0); LYMPHOCYTES #M 0.9 10^3/ul (0.8-2.9); LYMPHOCYTES % (M) 9 % (15-51); MICROCYTOSIS 2+ (0-0); MONOCYTE #M 0.8 10^3/ul (0.3-0.9); MONOCYTES % (M) 8 % (0-11); MYELOCYTES #M 0.1 10^3/ul (0.0-0.0); MYELOCYTES % (M) 1 % (0-0); OVALOCYTES 1+ (0-0); PLATELET MORPHOLOGY COMMENT @See below; POIKILOCYTOSIS 1+ (0-0); SEG NEUT #M 7.5 10^3/ul (1.6-7.5); SEGMENTED NEUTROPHILS (M) % 67 % (39-77); SMUDGE%M 7 % (0-0); TARGET CELLS 1+ (0-0)
[2017-09-30] MEDS: PREGABALIN 75 MG CAP PO (20:12)
[2017-09-30] MEDS: GABAPENTIN 300 MG CAP PO (20:12)
[2017-09-30] MEDS: ATORVASTATIN 20 MG TAB PO (20:12)
[2017-09-30] MEDS: FENTAnyl (DRIP) 1000 mcg/100mL 100 ML IV (21:02)
[2017-09-30 21:05] LABS: ADD MAN DIFF? NO
[2017-09-30 21:06] LABS: ABNORMAL IP MESSAGE 1; BASOPHILS % 0.3 % (0.0-2.0); HEMATOCRIT 27.5 % (42.0-52.0); HEMOGLOBIN 9.5 g/dl (14.0-18.0); LYMPHOCYTES # 0.5 10^3/ul (0.8-2.9); LYMPHOCYTES % 5.4 % (15.0-51.0); MEAN CORPUSCULAR HEMOGLOBIN 29.6 pg (29.0-33.0); MEAN CORPUSCULAR HGB CONC 34.5 g/dl (32.0-37.0); MEAN CORPUSCULAR VOLUME 85.7 fl (82.0-101.0); MEAN PLATELET VOLUME 10.3 fl (7.4-10.4); MONOCYTE # 0.8 10^3/ul (0.3-0.9); MONOCYTES % 9.2 % (0.0-11.0); NEUTROPHIL # 7.4 10^3/ul (1.6-7.5); NEUTROPHILS % 84.1 % (39.0-77.0); PLATELET COUNT 97 10^3/UL (140-415); POSITIVE DIFF @See below; RED BLOOD COUNT 3.21 10^6/ul (4.70-6.10); RED CELL DISTRIBUTION WIDTH 14.9 % (11.5-14.5)
[2017-09-30 21:06] LABS: WHITE BLOOD COUNT 8.8 10^3/ul (4.8-10.8)
[2017-09-30 21:30] LABS: ANION GAP 15 (8-16); BLOOD UREA NITROGEN 38 mg/dl (7-20); CALCIUM 8.3 mg/dl (8.4-10.2); CARBON DIOXIDE 27 mmol/L (21-31); CHLORIDE 106 mmol/L (97-110); CREATININE 1.14 mg/dl (0.61-1.24); GLUCOSE 118 mg/dl (70-220); POTASSIUM 3.5 mmol/L (3.5-5.1); SODIUM 144 mmol/L (135-144)
[2017-09-30] MEDS: MIDAZOLAM (DRIP) 50 mg/50 mL 50 ML IV (23:12)
[2017-10-01] MEDS ORDERED: DOBUTamine/D5W 1 MG/ML DRIP 250 ML IV (00:30)
[2017-10-01] MEDS: DOBUTamine/D5W 1 MG/ML DRIP 250 ML IV (00:47)
[2017-10-01] MEDS: PROPOFOL 100 ML IV ×2 (02:18→13:57)
[2017-10-01] MEDS: MIDAZOLAM (DRIP) 50 mg/50 mL 50 ML IV ×2 (05:19→17:31)
[2017-10-01 05:34] LABS: ADD MAN DIFF? NO
[2017-10-01] MEDS: PIPER-TAZO 3.375 GM IV (PMX) 100 ML IVPB ×3 (05:36→22:43)
[2017-10-01] MEDS: PANTOPRAZOLE 40 MG INJ IV ×2 (05:36→18:00)
[2017-10-01 05:38] LABS: WHITE BLOOD COUNT 9.7 10^3/ul (4.8-10.8)
[2017-10-01 05:38] LABS: BASOPHILS % 0.1 % (0.0-2.0); HEMATOCRIT 27.2 % (42.0-52.0); HEMOGLOBIN 9.4 g/dl (14.0-18.0); LYMPHOCYTES # 0.7 10^3/ul (0.8-2.9); LYMPHOCYTES % 7.1 % (15.0-51.0); MEAN CORPUSCULAR HEMOGLOBIN 29.2 pg (29.0-33.0); MEAN CORPUSCULAR HGB CONC 34.6 g/dl (32.0-37.0); MEAN CORPUSCULAR VOLUME 84.5 fl (82.0-101.0); MONOCYTE # 1.2 10^3/ul (0.3-0.9); MONOCYTES % 12.5 % (0.0-11.0); NEUTROPHIL # 7.6 10^3/ul (1.6-7.5); NEUTROPHILS % 78.9 % (39.0-77.0); PLATELET COUNT 111 10^3/UL (140-415); POSITIVE DIFF @See below; RED BLOOD COUNT 3.22 10^6/ul (4.70-6.10); RED CELL DISTRIBUTION WIDTH 15.3 % (11.5-14.5)
[2017-10-01 05:57] LABS: INR 1.17; PARTIAL THROMBOPLASTIN TIME 34.6 Sec (25.0-35.0); PROTIME 15.1 Sec (11.9-14.9); PT RATIO 1.2
[2017-10-01 05:58] LABS: MAGNESIUM 2.3 mg/dl (1.7-2.5)
[2017-10-01 05:58] LABS: PHOSPHORUS 2.4 mg/dl (2.5-4.9)
[2017-10-01 06:00] LABS: ALANINE AMINOTRANSFERASE 25 IU/L (13-69); ALBUMIN 2.8 g/dl (3.3-4.9); ALBUMIN/GLOBULIN RATIO 1.16; ALKALINE PHOSPHATASE 66 IU/L (42-121); ANION GAP 11 (8-16); ASPARTATE AMINO TRANSFERASE 18 IU/L (15-46); BILIRUBIN,INDIRECT 0.4 mg/dl (0-1.1); BILIRUBIN,TOTAL 0.4 mg/dl (0.2-1.3); BLOOD UREA NITROGEN 36 mg/dl (7-20); CALCIUM 8.3 mg/dl (8.4-10.2); CARBON DIOXIDE 30 mmol/L (21-31); CHLORIDE 108 mmol/L (97-110); CREATININE 1.03 mg/dl (0.61-1.24); GLUCOSE 107 mg/dl (70-220); POTASSIUM 3.2 mmol/L (3.5-5.1); SODIUM 146 mmol/L (135-144); TOTAL PROTEIN 5.2 g/dl (6.1-8.1)
[2017-10-01 06:08] LABS: LACTIC ACID 0.6 mmol/L (0.5-2.0)
[2017-10-01] MEDS: POTASSIUM PHOSPHATE 40 MEQ in SOD CHLORIDE 0.9% 250 ML IVPB (08:06)
[2017-10-01] MEDS ORDERED: POTASSIUM CHLORIDE 100 ML IVPB (08:25)
[2017-10-01] MEDS: D5W + KCL 20 MEQ 1,000 ML IV ×2 (09:12→22:00)
[2017-10-01 09:24] LABS: AADO2 Arterial 187.7 mmHg (7.0-24.0); Arterial Base Excess 4.5 mmol/L (-3.0-3); Arterial Blood Gas Oxygen Sat 95.2 mmHG (95.0-98.0); Arterial COHb 0.3 % (0.0-3.0); Arterial Fraction of Oxyhgb 94.8 % (93.0-99.0); Arterial HCO3 29.3 mmol/L (22.0-26.0); Arterial MetHb 0.1 % (0.0-1.5); Arterial Total Hemglobin 9.6 g/dl (12.0-18.0); Arterial pCO2 45.2 mmhg (35-45); MODE VENT - AC; Site A-Line
[2017-10-01 09:48] LABS: VANCOMYCIN,TROUGH 11.3 ug/ml (10.0-20.0)
[2017-10-01] MEDS ORDERED: HYDROmorphONE 2 MG/ML SYG IV (10:30)
[2017-10-01] MEDS: VANCOMYCIN 1.5 GM in SOD CHLORIDE 0.9% 250 ML IVPB (10:49)
[2017-10-01] MEDS: FENTAnyl (DRIP) 1000 mcg/100mL 100 ML IV (14:06)
[2017-10-01] MEDS: DOPamine-D5W 1.6 MG/ML 250 ML IV (17:01)
[2017-10-01] MEDS: ALBUTEROL HFA 8 GM INHALER INH (18:18)
[2017-10-01] MEDS: ATORVASTATIN 20 MG TAB PO (21:00)
[2017-10-01] MEDS: GABAPENTIN 300 MG CAP PO (21:00)
[2017-10-01] MEDS: PREGABALIN 75 MG CAP PO (21:00)
[2017-10-02] MEDS: MIDAZOLAM (DRIP) 50 mg/50 mL 50 ML IV ×2 (01:27→16:39)
[2017-10-02] MEDS: D5W + KCL 20 MEQ 1,000 ML IV ×2 (01:27→14:09)
[2017-10-02] MEDS: PANTOPRAZOLE 40 MG INJ IV ×2 (05:16→17:46)
[2017-10-02] MEDS: PIPER-TAZO 3.375 GM IV (PMX) 100 ML IVPB ×2 (05:16→13:32)
[2017-10-02 05:32] LABS: ADD MAN DIFF? NO
[2017-10-02 05:36] LABS: WHITE BLOOD COUNT 9.9 10^3/ul (4.8-10.8)
[2017-10-02 05:36] LABS: BASOPHILS % 0.2 % (0.0-2.0); EOSINOPHILS # 0.1 10^3/ul (0.0-0.5); EOSINOPHILS % 1.3 % (0.0-7.0); HEMATOCRIT 30.1 % (42.0-52.0); HEMOGLOBIN 10.1 g/dl (14.0-18.0); LYMPHOCYTES # 1.2 10^3/ul (0.8-2.9); LYMPHOCYTES % 11.7 % (15.0-51.0); MEAN CORPUSCULAR HEMOGLOBIN 29.1 pg (29.0-33.0); MEAN CORPUSCULAR HGB CONC 33.6 g/dl (32.0-37.0); MEAN CORPUSCULAR VOLUME 86.7 fl (82.0-101.0); MEAN PLATELET VOLUME 10.7 fl (7.4-10.4); MONOCYTE # 1.2 10^3/ul (0.3-0.9); MONOCYTES % 12.4 % (0.0-11.0); NEUTROPHILS % 70.3 % (39.0-77.0); NUCLEATED RED BLOOD CELLS% 0.2 /100WBC (0.0-0.0); PLATELET COUNT 137 10^3/UL (140-415); RED BLOOD COUNT 3.47 10^6/ul (4.70-6.10); RED CELL DISTRIBUTION WIDTH 15.9 % (11.5-14.5)
[2017-10-02 06:10] LABS: ANION GAP 7 (8-16); BLOOD UREA NITROGEN 24 mg/dl (7-20); CALCIUM 8.2 mg/dl (8.4-10.2); CARBON DIOXIDE 33 mmol/L (21-31); CHLORIDE 110 mmol/L (97-110); CREATININE 0.66 mg/dl (0.61-1.24); GLUCOSE 111 mg/dl (70-220); MAGNESIUM 2.3 mg/dl (1.7-2.5); POTASSIUM 3.5 mmol/L (3.5-5.1); SODIUM 146 mmol/L (135-144)
[2017-10-02] MEDS: PROPOFOL 100 ML IV (06:40)
[2017-10-02] MEDS: VANCOMYCIN 1.5 GM in SOD CHLORIDE 0.9% 250 ML IVPB (09:32)
[2017-10-02] MEDS: DOPamine-D5W 1.6 MG/ML 250 ML IV (09:36)
[2017-10-02] MEDS: FENTAnyl (DRIP) 1000 mcg/100mL 100 ML IV (10:19)
[2017-10-02] MEDS: ATORVASTATIN 20 MG TAB PO (19:59)
[2017-10-02] MEDS: GABAPENTIN 300 MG CAP PO (19:59)
[2017-10-02] MEDS: PREGABALIN 75 MG CAP PO (19:59)
[2017-10-02] MEDS ORDERED: HYDROmorphONE 1 MG/ML SYG IV (21:43)
[2017-10-03] MEDS: ALBUTEROL HFA 8 GM INHALER INH (00:31)
[2017-10-03] MEDS: MIDAZOLAM (DRIP) 50 mg/50 mL 50 ML IV ×2 (00:44→08:12)
[2017-10-03] MEDS: D5W + KCL 20 MEQ 1,000 ML IV ×2 (02:44→13:28)
[2017-10-03] MEDS ORDERED: VANCOMYCIN 1 GM 250 ML IVPB (04:00)
[2017-10-03 05:18] LABS: ADD MAN DIFF? NO
[2017-10-03 05:23] LABS: WHITE BLOOD COUNT 8.7 10^3/ul (4.8-10.8)
[2017-10-03 05:23] LABS: ABNORMAL IP MESSAGE 1; BASOPHILS % 0.3 % (0.0-2.0); EOSINOPHILS # 0.1 10^3/ul (0.0-0.5); EOSINOPHILS % 1.6 % (0.0-7.0); LYMPHOCYTES # 1.2 10^3/ul (0.8-2.9); LYMPHOCYTES % 13.6 % (15.0-51.0); MEAN CORPUSCULAR HEMOGLOBIN 28.5 pg (29.0-33.0); MEAN CORPUSCULAR HGB CONC 32.3 g/dl (32.0-37.0); MEAN CORPUSCULAR VOLUME 88.3 fl (82.0-101.0); MEAN PLATELET VOLUME 10.3 fl (7.4-10.4); MONOCYTE # 1.2 10^3/ul (0.3-0.9); MONOCYTES % 13.5 % (0.0-11.0); NEUTROPHIL # 5.5 10^3/ul (1.6-7.5); NEUTROPHILS % 63.3 % (39.0-77.0); PLATELET COUNT 143 10^3/UL (140-415); POSITIVE DIFF @See below; RED BLOOD COUNT 3.51 10^6/ul (4.70-6.10); RED CELL DISTRIBUTION WIDTH 15.8 % (11.5-14.5)
[2017-10-03] MEDS: PANTOPRAZOLE 40 MG INJ IV ×2 (05:41→17:10)
[2017-10-03] MEDS: PROPOFOL 100 ML IV ×2 (05:41→18:33)
[2017-10-03 06:25] LABS: ANION GAP 8 (8-16); BLOOD UREA NITROGEN 17 mg/dl (7-20); CALCIUM 8.3 mg/dl (8.4-10.2); CARBON DIOXIDE 32 mmol/L (21-31); CHLORIDE 109 mmol/L (97-110); CREATININE 0.59 mg/dl (0.61-1.24); GLUCOSE 85 mg/dl (70-220); MAGNESIUM 2.1 mg/dl (1.7-2.5); PHOSPHORUS 2.2 mg/dl (2.5-4.9); POTASSIUM 3.5 mmol/L (3.5-5.1); SODIUM 145 mmol/L (135-144)
[2017-10-03 08:24] LABS: AADO2 Arterial 177.4 mmHg (7.0-24.0); Allen Test ACCEPTAB; Arterial Base Excess 2.7 mmol/L (-3.0-3); Arterial Blood Gas Oxygen Sat 91.5 mmHG (95.0-98.0); Arterial COHb 0.3 % (0.0-3.0); Arterial Fraction of Oxyhgb 91.1 % (93.0-99.0); Arterial MetHb 0.1 % (0.0-1.5); Arterial Total Hemglobin 11.1 g/dl (12.0-18.0); Arterial pCO2 40.5 mmhg (35-45); MODE VENT - AC; Site Right Radial
[2017-10-03] MEDS: DOPamine-D5W 1.6 MG/ML 250 ML IV (13:30)
[2017-10-03] MEDS: FENTAnyl (DRIP) 1000 mcg/100mL 100 ML IV (13:30)
[2017-10-03] MEDS: ATORVASTATIN 20 MG TAB PO (21:00)
[2017-10-03] MEDS: GABAPENTIN 300 MG CAP PO (21:00)
[2017-10-03] MEDS: PREGABALIN 75 MG CAP PO (21:00)
[2017-10-04] MEDS: D5W + KCL 20 MEQ 1,000 ML IV ×2 (04:06→20:24)
[2017-10-04] MEDS: PROPOFOL 100 ML IV ×2 (04:06→07:44)
[2017-10-04] MEDS: FENTAnyl (DRIP) 1000 mcg/100mL 100 ML IV (04:09)
[2017-10-04 05:13] LABS: WHITE BLOOD COUNT 10.6 10^3/ul (4.8-10.8)
[2017-10-04 05:13] LABS: ABNORMAL IP MESSAGE 1; HEMATOCRIT 30.4 % (42.0-52.0); HEMOGLOBIN 9.9 g/dl (14.0-18.0); MEAN CORPUSCULAR HGB CONC 32.6 g/dl (32.0-37.0); MEAN CORPUSCULAR VOLUME 89.1 fl (82.0-101.0); MEAN PLATELET VOLUME 10.3 fl (7.4-10.4); PLATELET COUNT 162 10^3/UL (140-415); POSITIVE DIFF @See below; RED BLOOD COUNT 3.41 10^6/ul (4.70-6.10); RED CELL DISTRIBUTION WIDTH 15.8 % (11.5-14.5)
[2017-10-04] MEDS: PANTOPRAZOLE 40 MG INJ IV ×2 (05:30→18:33)
[2017-10-04 05:32] LABS: ALANINE AMINOTRANSFERASE 22 IU/L (13-69); ALBUMIN 2.6 g/dl (3.3-4.9); ALBUMIN/GLOBULIN RATIO 1.04; ALKALINE PHOSPHATASE 76 IU/L (42-121); ANION GAP 11 (8-16); ASPARTATE AMINO TRANSFERASE 13 IU/L (15-46); BILIRUBIN,INDIRECT 0.5 mg/dl (0-1.1); BILIRUBIN,TOTAL 0.5 mg/dl (0.2-1.3); BLOOD UREA NITROGEN 16 mg/dl (7-20); CALCIUM 8.2 mg/dl (8.4-10.2); CARBON DIOXIDE 28 mmol/L (21-31); CHLORIDE 108 mmol/L (97-110); CREATININE 0.61 mg/dl (0.61-1.24); GLUCOSE 100 mg/dl (70-220); POTASSIUM 3.7 mmol/L (3.5-5.1); SODIUM 143 mmol/L (135-144); TOTAL PROTEIN 5.1 g/dl (6.1-8.1)
[2017-10-04 05:44] LABS: ADD MAN DIFF? YES
[2017-10-04 07:20] LABS: ANISOCYTOSIS 2+ (0-0); BAND NEUTROPHILS #M 1.3 10^3/ul (0.0-0.6); BAND NEUTROPHILS % (M) 13 % (0-4); EOSINOPHILS % (M) 2 % (0-7); ERYTHROBLAST% (NRBC) (M) 1 % (0-0); GIANT THROMBO% (M) 2 % (0-0); LYMPHOCYTES #M 0.9 10^3/ul (0.8-2.9); LYMPHOCYTES % (M) 9 % (15-51); METAMYELOCYTES #M 0.1 10^3/ul (0.0-0.0); METAMYELOCYTES %M 1 % (0-0); MICROCYTOSIS 1+ (0-0); MONOCYTE #M 1.6 10^3/ul (0.3-0.9); MONOCYTES % (M) 16 % (0-11); MYELOCYTES #M 0.4 10^3/ul (0.0-0.0); MYELOCYTES % (M) 4 % (0-0); PLATELET ESTIMATE NORMAL; POIKILOCYTOSIS 1+ (0-0); POLYCHROMASIA 1+ (0-0); PROMYELOCYTES #M 0.1 10^3/ul (0-0); PROMYELOCYTES % (M) 1 % (0-0); SEG NEUT #M 5.9 10^3/ul (1.6-7.5); SEGMENTED NEUTROPHILS (M) % 54 % (39-77); SMUDGE%M 8 % (0-0)
[2017-10-04] MEDS: DOPamine-D5W 1.6 MG/ML 250 ML IV (07:43)
[2017-10-04] MEDS: FUROSEMIDE 40 MG INJ IV (09:59)
[2017-10-04 10:39] LABS: AADO2 Arterial 114.2 mmHg (7.0-24.0); Allen Test ACCEPTAB; Arterial Base Excess 2.3 mmol/L (-3.0-3); Arterial Blood Gas Oxygen Sat 89.4 mmHG (95.0-98.0); Arterial COHb 0.7 % (0.0-3.0); Arterial Fraction of Oxyhgb 88.7 % (93.0-99.0); Arterial HCO3 26.3 mmol/L (22.0-26.0); Arterial MetHb 0.1 % (0.0-1.5); Arterial Total Hemglobin 11.8 g/dl (12.0-18.0); Arterial pCO2 38.5 mmhg (35-45); Blood Gas PS 10; MODE VENT - CPAP; Site Right Radial
[2017-10-04] MEDS: ONDANSETRON 4 MG INJ IV (10:40)
[2017-10-04] MEDS: HYDROmorphONE 1 MG/ML SYG IV ×6 (10:40→21:45)
[2017-10-04] MEDS ORDERED: LORAZEPAM 2 MG INJ (11:04)
[2017-10-04] MEDS: LORAZEPAM 2 MG INJ IV ×4 (11:17→20:23)
[2017-10-04] MEDS: hydrALAzine 20 MG INJ IV (12:14)
[2017-10-04] MEDS: HALOPERIDOL 5 MG INJ IV (13:27)
[2017-10-04] MEDS: ATORVASTATIN 20 MG TAB PO (20:37)
[2017-10-04] MEDS: PREGABALIN 75 MG CAP PO (20:42)
[2017-10-04] MEDS: GABAPENTIN 300 MG CAP PO (20:42)
[2017-10-04] MEDS: PIPER-TAZO 3.375 GM IV (PMX) 100 ML IVPB (22:04)
[2017-10-05] MEDS: HYDROmorphONE 1 MG/ML SYG IV ×6 (00:01→21:39)
[2017-10-05] MEDS: LORAZEPAM 2 MG INJ IV ×4 (00:56→16:15)
[2017-10-05] MEDS: hydrALAzine 20 MG INJ IV (02:45)
[2017-10-05] MEDS ORDERED: ALBUTEROL/IPRATROPIUM (NEB) 3 ML AMP (03:48)
[2017-10-05] MEDS: ALBUTEROL/IPRATROPIUM (NEB) 3 ML AMP HHN (03:58)
[2017-10-05] MEDS: HALOPERIDOL 5 MG INJ IV ×2 (04:40→04:48)
[2017-10-05 05:08] LABS: AADO2 Arterial 157.8 mmHg (7.0-24.0); Allen Test ACCEPTAB; Arterial Base Excess 3.3 mmol/L (-3.0-3); Arterial Blood Gas Oxygen Sat 95.2 mmHG (95.0-98.0); Arterial COHb 0.5 % (0.0-3.0); Arterial Fraction of Oxyhgb 94.5 % (93.0-99.0); Arterial HCO3 27.3 mmol/L (22.0-26.0); Arterial MetHb 0.2 % (0.0-1.5); Arterial Total Hemglobin 11.9 g/dl (12.0-18.0); Arterial pCO2 39.7 mmhg (35-45); MODE NASAL CANNULA; Site Right Radial
[2017-10-05 05:45] LABS: ADD MAN DIFF? NO
[2017-10-05 05:51] LABS: WHITE BLOOD COUNT 13.5 10^3/ul (4.8-10.8)
[2017-10-05 05:51] LABS: BASOPHIL # 0.1 10^3/ul (0.0-0.1); BASOPHILS % 0.7 % (0.0-2.0); EOSINOPHILS # 0.1 10^3/ul (0.0-0.5); EOSINOPHILS % 0.7 % (0.0-7.0); HEMOGLOBIN 10.9 g/dl (14.0-18.0); LYMPHOCYTES # 0.6 10^3/ul (0.8-2.9); LYMPHOCYTES % 4.4 % (15.0-51.0); MEAN CORPUSCULAR HEMOGLOBIN 29.5 pg (29.0-33.0); MEAN CORPUSCULAR VOLUME 89.4 fl (82.0-101.0); MEAN PLATELET VOLUME 10.1 fl (7.4-10.4); MONOCYTES % 7.2 % (0.0-11.0); NEUTROPHIL # 11.3 10^3/ul (1.6-7.5); NEUTROPHILS % 83.5 % (39.0-77.0); PLATELET COUNT 165 10^3/UL (140-415); RED BLOOD COUNT 3.69 10^6/ul (4.70-6.10); RED CELL DISTRIBUTION WIDTH 15.5 % (11.5-14.5)
[2017-10-05] MEDS: PANTOPRAZOLE 40 MG INJ IV ×2 (06:13→18:21)
[2017-10-05] MEDS: PIPER-TAZO 3.375 GM IV (PMX) 100 ML IVPB ×3 (06:13→21:38)
[2017-10-05 06:16] LABS: ANION GAP 13 (8-16); BLOOD UREA NITROGEN 12 mg/dl (7-20); CALCIUM 8.5 mg/dl (8.4-10.2); CARBON DIOXIDE 30 mmol/L (21-31); CHLORIDE 109 mmol/L (97-110); CREATININE 0.58 mg/dl (0.61-1.24); GLUCOSE 120 mg/dl (70-220); POTASSIUM 3.7 mmol/L (3.5-5.1); SODIUM 148 mmol/L (135-144)
[2017-10-05] MEDS: OXYCODONE/ACETAMINOPHEN (5/325) TAB PO ×4 (08:01→23:46)
[2017-10-05] MEDS: FUROSEMIDE 40 MG INJ IV (08:03)
[2017-10-05] MEDS: D5W + KCL 20 MEQ 1,000 ML IV (18:17)
[2017-10-05] MEDS: ATORVASTATIN 20 MG TAB PO (21:38)
[2017-10-05] MEDS: PREGABALIN 75 MG CAP PO (21:38)
[2017-10-05] MEDS: GABAPENTIN 300 MG CAP PO (21:38)
[2017-10-06] MEDS: HYDROmorphONE 1 MG/ML SYG IV ×7 (01:43→18:07)
[2017-10-06] MEDS: ALBUTEROL/IPRATROPIUM (NEB) 3 ML AMP HHN ×3 (03:18→22:24)
[2017-10-06] MEDS: PANTOPRAZOLE 40 MG INJ IV ×2 (05:12→18:06)
[2017-10-06] MEDS: PIPER-TAZO 3.375 GM IV (PMX) 100 ML IVPB ×3 (05:12→21:30)
[2017-10-06] MEDS: ONDANSETRON 4 MG INJ IV ×3 (05:31→20:04)
[2017-10-06 05:42] LABS: WHITE BLOOD COUNT 14.2 10^3/ul (4.8-10.8)
[2017-10-06 05:42] LABS: ADD MAN DIFF? NO; BASOPHIL # 0.1 10^3/ul (0.0-0.1); BASOPHILS % 0.5 % (0.0-2.0); EOSINOPHILS # 0.2 10^3/ul (0.0-0.5); EOSINOPHILS % 1.7 % (0.0-7.0); HEMATOCRIT 32.1 % (42.0-52.0); HEMOGLOBIN 10.4 g/dl (14.0-18.0); LYMPHOCYTES # 0.9 10^3/ul (0.8-2.9); LYMPHOCYTES % 6.5 % (15.0-51.0); MEAN CORPUSCULAR HEMOGLOBIN 29.1 pg (29.0-33.0); MEAN CORPUSCULAR HGB CONC 32.4 g/dl (32.0-37.0); MEAN CORPUSCULAR VOLUME 89.9 fl (82.0-101.0); MEAN PLATELET VOLUME 10.2 fl (7.4-10.4); MONOCYTE # 0.9 10^3/ul (0.3-0.9); MONOCYTES % 6.3 % (0.0-11.0); NEUTROPHIL # 11.9 10^3/ul (1.6-7.5); NEUTROPHILS % 83.5 % (39.0-77.0); PLATELET COUNT 184 10^3/UL (140-415); RED BLOOD COUNT 3.57 10^6/ul (4.70-6.10); RED CELL DISTRIBUTION WIDTH 15.3 % (11.5-14.5)
[2017-10-06 06:15] LABS: ANION GAP 9 (8-16); BLOOD UREA NITROGEN 12 mg/dl (7-20); CALCIUM 8.3 mg/dl (8.4-10.2); CARBON DIOXIDE 33 mmol/L (21-31); CHLORIDE 103 mmol/L (97-110); CREATININE 0.65 mg/dl (0.61-1.24); GLUCOSE 114 mg/dl (70-220); POTASSIUM 3.6 mmol/L (3.5-5.1); SODIUM 141 mmol/L (135-144)
[2017-10-06] MEDS: FUROSEMIDE 40 MG INJ IV (08:48)
[2017-10-06] MEDS: LORAZEPAM 2 MG INJ IV (11:15)
[2017-10-06] MEDS: D5W + KCL 20 MEQ 1,000 ML IV (18:06)
[2017-10-06] MEDS: GABAPENTIN 300 MG CAP PO (20:05)
[2017-10-06] MEDS: PREGABALIN 75 MG CAP PO (20:05)
[2017-10-06] MEDS: ATORVASTATIN 20 MG TAB PO (20:05)
[2017-10-06] MEDS: OXYCODONE/ACETAMINOPHEN (5/325) TAB PO ×2 (20:06→23:55)
[2017-10-07 05:12] LABS: ADD MAN DIFF? NO
[2017-10-07 05:18] LABS: BASOPHIL # 0.1 10^3/ul (0.0-0.1); BASOPHILS % 0.3 % (0.0-2.0); EOSINOPHILS # 0.2 10^3/ul (0.0-0.5); EOSINOPHILS % 1.6 % (0.0-7.0); HEMATOCRIT 30.1 % (42.0-52.0); HEMOGLOBIN 9.7 g/dl (14.0-18.0); LYMPHOCYTES % 6.5 % (15.0-51.0); MEAN CORPUSCULAR HEMOGLOBIN 28.8 pg (29.0-33.0); MEAN CORPUSCULAR HGB CONC 32.2 g/dl (32.0-37.0); MEAN CORPUSCULAR VOLUME 89.3 fl (82.0-101.0); MEAN PLATELET VOLUME 9.9 fl (7.4-10.4); MONOCYTES % 6.7 % (0.0-11.0); NEUTROPHIL # 12.8 10^3/ul (1.6-7.5); PLATELET COUNT 191 10^3/UL (140-415); RED BLOOD COUNT 3.37 10^6/ul (4.70-6.10); RED CELL DISTRIBUTION WIDTH 15.4 % (11.5-14.5)
[2017-10-07 05:18] LABS: WHITE BLOOD COUNT 15.3 10^3/ul (4.8-10.8)
[2017-10-07] MEDS: PIPER-TAZO 3.375 GM IV (PMX) 100 ML IVPB ×3 (05:42→21:37)
[2017-10-07] MEDS: PANTOPRAZOLE 40 MG INJ IV ×2 (05:42→17:53)
[2017-10-07 05:43] LABS: ANION GAP 10 (8-16); BLOOD UREA NITROGEN 11 mg/dl (7-20); CALCIUM 8.3 mg/dl (8.4-10.2); CARBON DIOXIDE 32 mmol/L (21-31); CHLORIDE 102 mmol/L (97-110); CREATININE 0.65 mg/dl (0.61-1.24); GLUCOSE 100 mg/dl (70-220); POTASSIUM 3.5 mmol/L (3.5-5.1); SODIUM 140 mmol/L (135-144)
[2017-10-07] MEDS: ALBUTEROL/IPRATROPIUM (NEB) 3 ML AMP HHN ×3 (08:24→21:56)
[2017-10-07] MEDS: FUROSEMIDE 40 MG INJ IV (09:15)
[2017-10-07] MEDS: OXYCODONE/ACETAMINOPHEN (5/325) TAB PO (10:00)
[2017-10-07] MEDS: HYDROmorphONE 1 MG/ML SYG IV ×2 (13:00→21:31)
[2017-10-07] MEDS: D5W + KCL 20 MEQ 1,000 ML IV (20:30)
[2017-10-07] MEDS: ATORVASTATIN 20 MG TAB PO (21:30)
[2017-10-07] MEDS: GABAPENTIN 300 MG CAP PO ×2 (21:30→21:32)
[2017-10-07] MEDS: PREGABALIN 75 MG CAP PO (21:32)
[2017-10-07] MEDS: ONDANSETRON 4 MG INJ IV (21:37)
[2017-10-08] MEDS: HYDROmorphONE 1 MG/ML SYG IV ×2 (01:17→21:59)
[2017-10-08] MEDS: PIPER-TAZO 3.375 GM IV (PMX) 100 ML IVPB ×3 (05:28→21:59)
[2017-10-08] MEDS: PANTOPRAZOLE 40 MG INJ IV ×2 (05:28→18:01)
[2017-10-08 05:43] LABS: ADD MAN DIFF? NO
[2017-10-08 05:49] LABS: BASOPHIL # 0.1 10^3/ul (0.0-0.1); BASOPHILS % 0.3 % (0.0-2.0); EOSINOPHILS # 0.2 10^3/ul (0.0-0.5); EOSINOPHILS % 1.3 % (0.0-7.0); HEMATOCRIT 28.5 % (42.0-52.0); HEMOGLOBIN 9.2 g/dl (14.0-18.0); LYMPHOCYTES # 1.1 10^3/ul (0.8-2.9); LYMPHOCYTES % 7.1 % (15.0-51.0); MEAN CORPUSCULAR HEMOGLOBIN 29.1 pg (29.0-33.0); MEAN CORPUSCULAR HGB CONC 32.3 g/dl (32.0-37.0); MEAN CORPUSCULAR VOLUME 90.2 fl (82.0-101.0); MEAN PLATELET VOLUME 10.2 fl (7.4-10.4); MONOCYTE # 1.2 10^3/ul (0.3-0.9); MONOCYTES % 8.2 % (0.0-11.0); NEUTROPHIL # 12.3 10^3/ul (1.6-7.5); NEUTROPHILS % 82.1 % (39.0-77.0); PLATELET COUNT 194 10^3/UL (140-415); RED BLOOD COUNT 3.16 10^6/ul (4.70-6.10); RED CELL DISTRIBUTION WIDTH 15.1 % (11.5-14.5)
[2017-10-08 06:07] LABS: ANION GAP 2 (8-16); BLOOD UREA NITROGEN 10 mg/dl (7-20); CALCIUM 8.2 mg/dl (8.4-10.2); CARBON DIOXIDE 36 mmol/L (21-31); CHLORIDE 102 mmol/L (97-110); CREATININE 0.74 mg/dl (0.61-1.24); GLUCOSE 99 mg/dl (70-220); POTASSIUM 3.7 mmol/L (3.5-5.1); SODIUM 136 mmol/L (135-144)
[2017-10-08] MEDS: FUROSEMIDE 40 MG INJ IV (09:39)
[2017-10-08] MEDS ORDERED: ACETAMINOPHEN 1000MG/100ML IV 100 ML IVPB (12:30)
[2017-10-08] MEDS: D5W + KCL 20 MEQ 1,000 ML IV (16:30)
[2017-10-08] MEDS: ATORVASTATIN 20 MG TAB PO (20:58)
[2017-10-08] MEDS: GABAPENTIN 300 MG CAP PO (20:58)
[2017-10-08] MEDS: PREGABALIN 75 MG CAP PO (20:59)
[2017-10-08] MEDS: GUAIFENESIN 20 MG/ML 5ML CUP PO (21:00)
[2017-10-08] MEDS: ALBUTEROL/IPRATROPIUM (NEB) 3 ML AMP HHN (21:30)
[2017-10-09 05:04] LABS: ADD MAN DIFF? NO
[2017-10-09 05:07] LABS: WHITE BLOOD COUNT 12.8 10^3/ul (4.8-10.8)
[2017-10-09 05:07] LABS: BASOPHILS % 0.2 % (0.0-2.0); EOSINOPHILS # 0.2 10^3/ul (0.0-0.5); EOSINOPHILS % 1.5 % (0.0-7.0); HEMATOCRIT 30.3 % (42.0-52.0); HEMOGLOBIN 9.7 g/dl (14.0-18.0); LYMPHOCYTES # 1.1 10^3/ul (0.8-2.9); LYMPHOCYTES % 8.9 % (15.0-51.0); MEAN CORPUSCULAR HEMOGLOBIN 28.8 pg (29.0-33.0); MEAN CORPUSCULAR VOLUME 89.9 fl (82.0-101.0); MEAN PLATELET VOLUME 10.1 fl (7.4-10.4); MONOCYTE # 1.3 10^3/ul (0.3-0.9); MONOCYTES % 9.8 % (0.0-11.0); NEUTROPHIL # 10.1 10^3/ul (1.6-7.5); NEUTROPHILS % 78.7 % (39.0-77.0); PLATELET COUNT 211 10^3/UL (140-415); RED BLOOD COUNT 3.37 10^6/ul (4.70-6.10); RED CELL DISTRIBUTION WIDTH 15.2 % (11.5-14.5)
[2017-10-09 05:32] LABS: ANION GAP 9 (8-16); BLOOD UREA NITROGEN 10 mg/dl (7-20); CALCIUM 8.2 mg/dl (8.4-10.2); CARBON DIOXIDE 34 mmol/L (21-31); CHLORIDE 100 mmol/L (97-110); CREATININE 0.78 mg/dl (0.61-1.24); GLUCOSE 103 mg/dl (70-220); POTASSIUM 3.4 mmol/L (3.5-5.1); SODIUM 140 mmol/L (135-144)
[2017-10-09 05:47] LABS: PHOSPHORUS 3.9 mg/dl (2.5-4.9)
[2017-10-09] MEDS: PANTOPRAZOLE 40 MG INJ IV (06:16)
[2017-10-09] MEDS: PIPER-TAZO 3.375 GM IV (PMX) 100 ML IVPB ×2 (06:16→14:00)
[2017-10-09] MEDS: GUAIFENESIN 20 MG/ML 5ML CUP PO ×2 (06:56→12:35)
[2017-10-09] MEDS ORDERED: FUROSEMIDE 20 MG INJ IV (09:00)
[2017-10-09] MEDS: BUMETANIDE 1 MG TAB PO (09:15)
[2017-10-09] MEDS: HYDROCODONE/APAP (10/325) TAB PO (10:17)
[2017-10-09] MEDS: POTASSIUM CHLORIDE (SR) 20 MEQ TAB PO (11:33)
[2017-10-09] MEDS: D5W + KCL 20 MEQ 1,000 ML IV (11:34)
[2017-10-09] MEDS: ALBUTEROL/IPRATROPIUM (NEB) 3 ML AMP HHN (13:53)
== END 2017-10-09 14:49 | disposition home health service (06) | DRG 335 ==
LOC: ICU 09-28 09:15 → E/R 05:47 → ICU 09-28 09:20 → MS1 10-05 19:08 → PP2 08:11
PROC: 0WQF0ZZ Repair Abdominal Wall, Open Approach (ICD-10-PCS; principal; 2017-09-27 14:15)
PROC: 0DN80ZZ Release Small Intestine, Open Approach (ICD-10-PCS; 2017-09-27 14:15)
PROC: 0DBU0ZZ Excision of Omentum, Open Approach (ICD-10-PCS; 2017-09-27 14:15)
PROC: 0KCK0ZZ Extirpation of Matter from Right Abdomen Muscle, Open Approach (ICD-10-PCS; 2017-09-27 14:15)
PROC: 0KCL0ZZ Extirpation of Matter from Left Abdomen Muscle, Open Approach (ICD-10-PCS; 2017-09-27 14:15)
PROC: 30233N1 Transfusion of Nonautologous Red Blood Cells into Peripheral Vein, Percutaneous Approach (ICD-10-PCS; 2017-09-27 14:15)
PROC: 30233K1 Transfusion of Nonautologous Frozen Plasma into Peripheral Vein, Percutaneous Approach (ICD-10-PCS; 2017-09-27 14:15)
PROC: 5A1945Z Respiratory Ventilation, 24-96 Consecutive Hours (ICD-10-PCS; 2017-09-27 14:15)
PROC: 0BH17EZ Insertion of Endotracheal Airway into Trachea, Via Natural or Artificial Opening (ICD-10-PCS; 2017-09-27 14:15)
DX: K42.0 Umbilical hernia with obstruction, without gangrene (principal); A41.9 Sepsis, unspecified organism; R65.21 Severe sepsis with septic shock; N17.0 Acute kidney failure with tubular necrosis; J96.01 Acute respiratory failure with hypoxia; J18.9 Pneumonia, unspecified organism; E87.2 Acidosis; D62 Acute posthemorrhagic anemia; M96.841 Postprocedural hematoma of a musculoskeletal structure following other procedure; D68.32 Hemorrhagic disorder due to extrinsic circulating anticoagulants; E78.5 Hyperlipidemia, unspecified; K40.90 Unilateral inguinal hernia, without obstruction or gangrene, not specified as recurrent; I10 Essential (primary) hypertension; J43.9 Emphysema, unspecified; Z95.2 Presence of prosthetic heart valve; G47.33 Obstructive sleep apnea (adult) (pediatric); G62.9 Polyneuropathy, unspecified; I27.20 Pulmonary hypertension, unspecified; E66.9 Obesity, unspecified; Z68.26 Body mass index [BMI] 26.0-26.9, adult; F12.10 Cannabis abuse, uncomplicated; I25.10 Atherosclerotic heart disease of native coronary artery without angina pectoris; I48.2 Chronic atrial fibrillation; T45.515A Adverse effect of anticoagulants, initial encounter; Y92.239 Unspecified place in hospital as the place of occurrence of the external cause; D69.6 Thrombocytopenia, unspecified; R00.1 Bradycardia, unspecified
CPT/HCPCS: 36415; 36430; 36600; 71045; 74176; 76536; 76775; 80048; 80053; 80061; 80202; 81001; 81003; 82550; 82570; 82803; 83036; 83605; 83690; 83735; 84100; 84300; 84439; 84443; 84560; 85014; 85018; 85025; 85049; 85362; 85378; 85384; 85610; 85670; 85730; 86850; 86900; 86901; 86920; 87040; 87081; 87086; 88304; 89190; 93005; 94002; 94003; 94640; 94664; 94770; 96374; 96375; 96376; 97116; 97162; 97530; 99285-25; J1250